=== PATIENT | male | born 1970 | race Caucasian/White ===

== ENCOUNTER → 2016-11-24 | Outpatient (CLI) | payer OTHER ==
[~2016-11-24] MED LIST: ALLEGRA180 MG PO; AVAPRO150 MG PO; BREO ELLIPTA 11 EACH INH; LEVAQUIN500 MG PO; LOPRESSOR25 MG PO; MUCINEX600 MG PO; NEXIUM40 MG PO; TESSALON PERLE100 MG PO; XARELTO15 MG PO; XARELTO20 MG PO; XOPENEX HF45 MCG/INH INH; ZOLOFT100 MG PO
--- NOTE | ~2016-11-24 | ECHO ---
Stress Echocardiography Report Demographics Patient Name WAYLON CRUZ Date of Study 11/24/2016 Patient Number [id number] Visit Number [id number] Date of 1970 Room Number Gender Male Number Age 46 year(s) Referring Angélica Jackson MD Bulk Tank Driver Den RVT, Physician RDCS Jeanne Ramírez RDCS, RVT Physician Interpreting Angélica Jackson MD Sugar Presser Physician Supervising Bhupinder Collins Ordering Angélica Jackson MD, MD/MLP SEISMIC PLOTTER Physician Nurse Stevie Preston RN Stress Loan Documentation Specialist Conclusions Summary Baseline echo images demonstrate normal left ventricular systolic function without inducible wall motion abnormalities. Peak stress echo images demonstrate appropriate augmentation of all wall segments without inducible wall motion abnormalities. Negative stress echo at this given cardiac workload. Procedure Type of Study Stress procedure:Treadmill Stress Echo w/o Contrast. Procedure Date Date: 11/24/2016 Start: 10:30 AM Study Location: Echo Lab Technical Quality: Adequate visualization Indications:Chest pain. Appropriate Use Criteria: 9 Patient Status: Routine HR: 56 bpm BP: 157/88 mmHg Risk Factors - The patient's risk factor(s) include: previous angina/DE, dyslipidemia, obesity and arterial hypertension. Rest ECG RSR without T wave changes. Resting HR:58 bpmResting BP:157/88 mmHg Pre-Stress Physical Exam Sinus rhythm. No chest pain at rest. Complains of chest pain with exercise at times. Stress Stress Type: Exercise Peak HR: 158 bpm HR Response: Appropriate Peak BP: 180/100 mmHg BP Response: Appropriate Predicted HR: 172 bpm HR BP Product: 16503 % of predicted HR: 92 Max Exercise: 8.5 METS Test Duration: 08:00 min Reason for Termination: Target heart rate Exercise Effort: Excellent Perceived Exertion: 11 Results ECG Sinus tachycardia. Arrhythmias No rhythm abnormality. Symptoms Complains of chest pain at beginning of stress then resolved. At 7 minutes complained of left arm discomfort. Peak HR 146 with arm pain. The pain was gone with rest, but complains of lt. hand numbness. DTS =+8. Marlon Roe APRN Contractility Score Rest LV regional wall motion:(0-Non visualized 1-Normal 2-Hypokinesis 3-Akinesis 4-Dyskinesis 5-Aneurysm) Signature dtt: Manuel Lindsay (cardio) dtd: 11/24/16 1030 Physician Self Edit
== END | disposition disaster alternative care site (69) ==
LOC: GCAR 09:32
DX: R07.9 Chest pain, unspecified (principal); I25.2 Old myocardial infarction; E78.5 Hyperlipidemia, unspecified; E66.9 Obesity, unspecified; I10 Essential (primary) hypertension